=== PATIENT | female | born 1945 | race Two or more races ===

== ENCOUNTER 2024-08-01 15:24 | Emergency (ER) | payer OTHER ==
[~2024-08-01] VITALS: Ht 154.9 cm; Wt 64.9 kg
[2024-08-01] MEDS ORDERED: [UNRECOGNIZED DRUG - OTHER] (15:28)
[2024-08-01] MEDS ORDERED: ZOLOFT50 MG PO (15:30)
[2024-08-01] MEDS ORDERED: EZALLOR SPRINKL10 MG PO (15:30)
[2024-08-01] MEDS ORDERED: KERENDIA10 MG PO (15:30)
[2024-08-01] MEDS ORDERED: AVAPRO75 MG PO (15:31)
[2024-08-01] MEDS ORDERED: LIDOCAINE HCL 1% 10ML VIAL PERCUT ONE (16:30)
[2024-08-01] MEDS ORDERED: TETANUS & DIPHTHERIA TOX,ADULT 0.5 ML VIAL IM ONE (16:30)
[2024-08-01] MEDS ORDERED: CEFTRIAXONE SODIUM 1,000 MG VIAL IM ONE (16:30)
[2024-08-01] MEDS ORDERED: CEFTRIAXONE SODIUM 1,000 MG VIAL ONE (16:46)
[2024-08-01] MEDS ORDERED: LIDOCAINE HCL 1% 10ML VIAL ONE (16:46)
[2024-08-01] MEDS ORDERED: DIPHTH,PERTUSS(ACELL),TET VAC 0.5 ML SYRINGE IM ONE (16:51)
[2024-08-01] MEDS ORDERED: DUI500 PO (19:18)
== END 2024-08-01 20:00 ==
LOC: ER 15:27
DX: S01.81XA Laceration without foreign body of other part of head, initial encounter (principal); W19.XXXA Unspecified fall, initial encounter; Y93.89 Activity, other specified; Y92.89 Other specified places as the place of occurrence of the external cause; Y99.8 Other external cause status; I10 Essential (primary) hypertension; E11.9 Type 2 diabetes mellitus without complications
CPT/HCPCS: 12032; 70450; 72125; 90471; 90714; 96372; 99284; J0696; J1670; J3490